=== PATIENT | female | born 2000 | race Two or more races ===

== ENCOUNTER 2024-03-26 22:10 | Emergency (ER) | payer OTHER ==
[~2024-03-26] VITALS: Ht 160 cm; Wt 55.3 kg
[2024-03-26] MEDS ORDERED: ZYRTEC10 MG PO (23:48)
[2024-03-26] MEDS ORDERED: SINGULAIR10 MG PO (23:48)
== END 2024-03-27 00:54 | disposition home or self-care (01) ==
LOC: ER 22:13
DX: J30.9 Allergic rhinitis, unspecified (principal); R09.82 Postnasal drip

== ENCOUNTER 2024-09-19 17:57 | Emergency (ER) | payer OTHER ==
[~2024-09-19] VITALS: Ht 162.6 cm; Wt 56.7 kg
[~2024-09-19 17:57] MED LIST: SINGULAIR10 MG PO; ZYRTEC10 MG PO
[2024-09-19] MEDS ORDERED: KETOROLAC TROMETHAMINE 15 MG VIAL IM STA (18:29)
[2024-09-19] MEDS ORDERED: KETOROLAC TROMETHAMINE 60 MG VIAL IM ONE (18:38)
[2024-09-19] MEDS ORDERED: ADVIL DUAL ACT1 EACH PO (22:10)
[2024-09-19 22:16] VITALS: BP 110/70; O2SAT 100
== END 2024-09-19 22:17 | disposition home or self-care (01) ==
LOC: ER 17:57
DX: S30.0XXA Contusion of lower back and pelvis, initial encounter (principal); W10.8XXA Fall (on) (from) other stairs and steps, initial encounter; Y93.89 Activity, other specified; Y92.89 Other specified places as the place of occurrence of the external cause; Y99.9 Unspecified external cause status